=== PATIENT | male | born 1985 | race Caucasian/White ===

== ENCOUNTER 2016-10-06 19:11 | Emergency (ER) | payer OTHER ==
[2016-10-06] MEDS ORDERED: DIAZEPAM INJ 10 MG/2 ML DISP.SYRIN IV ONE (20:46)
--- NOTE | 2016-10-06 20:48 | ER Document Report ---
ED Medical Screen (RME) - General Chief Complaint: Neck and Upper Back Pain Stated Complaint: NECK PAIN Time Seen by Provider: 10/06/16 20:46 Notes: Patient is a 31-year-old male who comes emergency department with chief complaint of progressively worsening right-sided neck and upper back pain today , he cannot recall any specific injury although he did help move a hutch 2 days ago. Patient denies history of the same. He denies any surgeries other than arthroscopic shoulder surgery, he denies any daily medications. TRAVEL OUTSIDE OF THE [place] IN LAST 30 DAYS: No - Related Data Allergies/Adverse Reactions: No Known Allergies Allergy (Verified 10/06/16 19:43) Past Medical History Renal/ Medical History: Reports: Hx Kidney Stones. Denies: Hx Peritoneal Dialysis Past Surgical History: Reports: Hx Orthopedic Surgery - left shoulder arthroscopic labrum repair, Hx Urinary Tract Surgery - cystoscopic removal of right ureteral stone - Immunizations Immunizations up to date: Yes Hx Diphtheria, Pertussis, Tetanus Vaccination: Yes Physical Exam - General General appearance: Other - Patient appears to be in pain, his head is rotated to the left with his neck at an angle which appears to have difficulty moving from, no midline tenderness of the cervical spine, normal strength of the upper and lower extremities, normal distal neurovascular exam Course - Re-evaluation Re-evalutation: Patient's examination is consistent with painful appearing torticollis
[2016-10-06] MEDS ORDERED: ACETAMINOPHEN 325 MG TABLET PO ONE (22:17)
[2016-10-06] MEDS ORDERED: LIDOCAINE 5% (700 MG) TRANSDERMAL ADH..PATCH TP ONE (22:17)
[2016-10-06] MEDS ORDERED: HYDROCODONE/ACETAMINOPHEN 5-325 MG 6 TAB/DSPK PO PRN (22:17)
[2016-10-06] MEDS ORDERED: KETOROLAC TROMETHAMINE INJ/PF 30 MG/1 ML SDV IV ONE (22:17)
--- NOTE | 2016-10-06 22:21 | ER Document Report ---
ED General - General Chief Complaint: Neck and Upper Back Pain Stated Complaint: NECK PAIN Time Seen by Provider: 10/06/16 20:46 Notes: Patient is a 31-year-old male without past medical history who presents with acute onset of severe right-sided neck pain. States he felt a twinge in the right side of his neck, move the neck and then immediately felt a severe spasming, constant, throbbing pain to the right side of his neck that has subsequently spread into his right trapezius, right shoulder and around his right scapula. States any kind of movement of the neck or shoulder worsens the pain. He has not tried anything to improve the pain. No history of similar symptoms in the past. He denies any associated weakness, numbness, altered mental status. No acute injury to the neck. He has not seen his primary care doctor. TRAVEL OUTSIDE OF THE [place] IN LAST 30 DAYS: No - Related Data Allergies/Adverse Reactions: No Known Allergies Allergy (Verified 10/06/16 19:43) Past Medical History - General Information source: Patient - Social History Smoking Status: Never Smoker Frequency of alcohol use: None Drug Abuse: None Lives with: Spouse/Significant other Family History: Reviewed & Not Pertinent Patient has suicidal ideation: No Patient has homicidal ideation: No Renal/ Medical History: Reports: Hx Kidney Stones. Denies: Hx Peritoneal Dialysis Past Surgical History: Reports: Hx Orthopedic Surgery - left shoulder arthroscopic labrum repair, Hx Urinary Tract Surgery - cystoscopic removal of right ureteral stone - Immunizations Immunizations up to date: Yes Hx Diphtheria, Pertussis, Tetanus Vaccination: Yes Review of Systems - Review of Systems Notes: Constitutional: Negative for fever. HENT: Negative for sore throat. Eyes: Negative for visual changes. Cardiovascular: Negative for chest pain. Respiratory: Negative for shortness of breath. Gastrointestinal: Negative for abdominal pain, vomiting or diarrhea. Genitourinary: Negative for dysuria. Musculoskeletal: Positive for neck pain Skin: Negative for rash. Neurological: Negative for headaches, weakness or numbness. 10 point ROS negative except as marked above and in HPI. Physical Exam - Vital signs Vitals: Temp Pulse BP Pulse Ox 98.2 F 85 136/91 H 94 10/06/16 19:43 10/06/16 19:43 10/06/16 19:43 10/06/16 19:43 Interpretation: Normal Notes: PHYSICAL EXAMINATION: GENERAL: Well-appearing, well-nourished and in no acute distress. HEAD: Atraumatic, normocephalic. EYES: Pupils equal round and reactive to light, extraocular movements intact, sclera anicteric, conjunctiva are normal. ENT: nares patent, oropharynx clear without exudates. Moist mucous membranes. NECK: Pain on palpation of the right sternocleidomastoid muscle, right trapezius and right periscapular region. LUNGS: Breath sounds clear to auscultation bilaterally and equal. No wheezes rales or rhonchi. HEART: Regular rate and rhythm without murmurs ABDOMEN: Soft, nontender, normoactive bowel sounds. No guarding, no rebound. No masses appreciated. EXTREMITIES: Normal range of motion, no pitting or edema. No cyanosis. NEUROLOGICAL: Face symmetric. Tongue protrudes midline. Extraocular motions intact. Pupils are 2 mm and equally reactive. Normal speech, normal gait. 5 out of 5 strength in both the distal and proximal upper and lower extremities bilaterally. Sensation is grossly intact throughout. Finger to nose testing normal. Pronator drift normal. PSYCH: Normal mood, normal affect. SKIN: Warm, Dry, normal turgor, no rashes or lesions noted. Course - Re-evaluation Re-evalutation: 10/06/16 22:18 Patient presents with signs and symptoms most consistent with a musculoskeletal strain involving the sternocleidomastoid and trapezius muscles. He has no focal neurologic deficits. RMU distribution sensory and motor exams are completely normal. He has no midline tenderness step-offs or deformities and no acute injury. I do not see an indication for acute MRI or CT imaging of the cervical spine. Will symptomatically treat and recommend close outpatient follow-up. At this time will discharge with return precautions and follow-up recommendations. Verbal discharge instructions given a the bedside and opportunity for questions given. Medication warnings reviewed. Patient is in agreement with this plan and has verbalized understanding of return precautions and the need for primary care follow-up in the next 24-72 hours. - Vital Signs Vital signs: Temp Pulse Resp BP Pulse Ox 97.4 F 76 14 130/82 H 96 10/06/16 22:49 10/06/16 22:49 10/06/16 22:49 10/06/16 22:49 10/06/16 22:49 Discharge - Discharge Clinical Impression: Neck pain, Muscle spasm Condition: Good Disposition: HOME, SELF-CARE Additional Instructions: Your symptoms are related to inflammation and spasm of some of your neck and shoulder muscles. You should continue to take anti-inflammatories such as ibuprofen 600 mg every 6 hours. Continue to apply heat to the area is much your able. Take the [place] only at night for severe pain that prevents you from sleeping. Please follow-up with your primary care physician if you do not have improving your symptoms in the next 1-2 weeks. Please return immediately if you develop weakness, numbness, spreading redness from the area, or any other symptoms that are concerning to you. Forms: Parent Work Note, Return to Work
[2016-10-06 22:51] VITALS: BP 130/82
== END 2016-10-06 23:11 | disposition home or self-care (01) ==
LOC: ER 19:11
DX: M54.2 Cervicalgia (principal); M62.838 Other muscle spasm; M25.511 Pain in right shoulder
CPT/HCPCS: 99283; 96374; 96375; J3360; J1885